=== PATIENT | female | born 1975 | race African-American/Black ===

== ENCOUNTER 2017-05-09 11:56 | Inpatient (IN) | payer MEDICAID ==
[2017-05-09] MEDS ORDERED: LACTATED RINGERS 1,000 ML ONE (13:37)
[2017-05-09] MEDS ORDERED: BRETHINE SUB-Q PRN (13:44)
[2017-05-09] MEDS ORDERED: BRETHINE IVP PRN (13:44)
[2017-05-09] MEDS ORDERED: XYLOCAINE 2% INFILTRATI ONE (13:44)
[2017-05-09] MEDS ORDERED: SUBLIMAZE IV PRN (13:44)
[2017-05-09] MEDS ORDERED: ePHEDrine SULFATE IV PRN (13:44)
--- NOTE | 2017-05-09 13:55 | History and Physical Report ---
History of Present Illness Date of examination: 05/09/17 Date of admission: 05/09/17 11:57 History of present illness: 41 yo first trimester U/s EDc 05/31/17 @ 36.6 weeks presented to [facility] for scheduled appointment and was noted to have BPP 6/8, oligohydramnios 4.89cm and abnormal umbilical dopplers. EFW 6-10oz (47%) on 05/01/17. Patient was first trimester entry into care at 7 weeks gestation. course complicated by advanced maternal age with positive quad screen for trisomy 21 and cell free DNA screen also positive for T-21. Amnio declined. GBS negative. Past History Past Medical History: no pertinent history Past Surgical History: no surgical history Social history: - Obstetrical History Expected Date of Delivery: 05/31/17 Actual Gestation: 36 Week(s) 6 Day(s) : 3 Para: 2 Hx # Term Pregnancies: 2 Number of Living Children: 2 Medications and Allergies Allergies Allergy/AdvReac Type Severity Reaction Status Date / Time No Known Allergies Allergy Verified 09/30/13 13:53 Home Medications Medication Instructions Recorded Confirmed Last Taken Type Vit No.126/Iron/Folic 1 each PO DAILY 09/30/13 09/30/13 09/29/13 History [Classic Tablet] 1 tab HYDROcodone/APAP 5-325 [[place] 2 each PO Q6H PRN #30 tablet 10/01/13 Unknown Rx 5-325 mg TAB] Ibuprofen [Motrin 600 MG tab] 600 mg PO Q6HR #30 tablet 10/01/13 Unknown Rx Active Meds: Active Medications Butorphanol Tartrate (Stadol) 2 mg IV Q2H PRN PRN Reason: Pain , Severe (7-10) Dinoprostone (Cervidil) 10 mg VG ONCE ONE Stop: 05/09/17 14:31 Ephedrine Sulfate (Ephedrine Sulfate) 10 mg IV Q2M PRN PRN Reason: Hypotension Fentanyl (Sublimaze) 100 mcg IV Q2H PRN PRN Reason: Labor Pain Lactated Ringer's (Lactated Ringers) 1,000 mls @ 125 mls/hr IV DIRECT JARVIS Oxytocin/Sodium Chloride (Pitocin/Ns 20 Unit/1000ml Drip) 20 units in 1,000 mls @ 125 mls/hr IV DIRECT JARVIS Oxytocin/Sodium Chloride (Pitocin/Ns 30 Unit/500ml) 30 units in 500 mls @ 1 mls /hr IV TITR JARVIS; 1 MILLIUNITS/MIN PRN Reason: Protocol Oxytocin/Sodium Chloride (Pitocin/Ns 30 Unit/500ml) 30 units in 500 mls @ 4 mls /hr IV TITR JARVIS PRN Reason: Protocol Lidocaine (Xylocaine 2%) 20 ml INFILTRATI ONCE ONE Stop: 05/09/17 13:45 Terbutaline Sulfate (Brethine) 0.25 mg SUB-Q ONCE PRN PRN Reason: Hyperstimulation/Hypertonicity Terbutaline Sulfate (Brethine) 0.25 mg IVP ONCE PRN PRN Reason: Hyperstimulation/Hypertonicity Review of Systems All systems: negative Genitourinary: normal appearance, no vaginal bleeding, no vaginal discharge, no leakage of fluid, no pelvic pain, no genital sores, no contractions - Vital Signs Vital signs: Vital Signs Pulse BP 76 103/62 05/09/17 13:08 05/09/17 13:08 Temp Pulse Resp BP Pulse Ox 86 103/62 96 05/09/17 13:48 05/09/17 13:08 05/09/17 13:48 - Physical Exam Abdomen: Positive: normal appearance, soft Vagina: Positive: normal moisture - Obstetrical FHR: category 1 Uterine Contraction Monitor Mode: External Cervical Dilatation: 1 Cervical Effacement Percentage: 40 station: -3 Uterine Contraction Frequency (min): 0 Uterine Contraction Pattern: Absent Uterine Tone Measurement Phase: Resting Uterine Contraction Intensity: Mild Results All other labs normal. Assessment and Plan A: IUP at 36.6 weeks gestaion AMA Abnormal quad and NIPT for T-21 Oligohydramnios Elevated dopplers BPP 6/10 Unfavorable cervix GBS negative P: Induction per APA recommendations Cervidil
[2017-05-09] MEDS ORDERED: LACTATED RINGERS 1,000 ML IV SCH (14:00)
[2017-05-09] MEDS ORDERED: PITOCin/NS 30 UNIT/500ML 30 UNITS/500 ML BAG IV SCH (14:00)
[2017-05-09] MEDS ORDERED: PITOCin/NS 20 UNIT/1000ML DRIP 20 UNITS/1,000 ML BAG IV SCH (14:00)
[2017-05-09 14:30] LABS: Hematocrit 35.1 % (30.3-42.9); Hemoglobin 11.8 gm/dl (10.1-14.3); Mean Corpuscular HGB Conc 34 % (30-34); Mean Corpuscular Hemoglobin 28 pg (28-32); Mean Corpuscular Volume 82 fl (79-97); Platelet Count 267 K/mm3 (140-440); Red Blood Count 4.26 M/mm3 (3.65-5.03); Red Cell Distribution Width 12.5 % (13.2-15.2); White Blood Count 13.5 K/mm3 (4.5-11.0)
[2017-05-09] MEDS ORDERED: CERVIDIL VG ONE (14:30)
[2017-05-09] MEDS: STADOL IV PRN ×2 (19:27→21:52)
--- NOTE | 2017-05-09 23:33 | Procedure Note ---
OB Delivery Note - Delivery Date of Delivery: 05/09/17 (6-10oz male @ 2302) Surgeon: DANITA DIAS Estimated blood loss: 100cc - Vaginal Delivery presentation: vertex Delivery position: OA Intrapartum events: none Delivery induction: cervidil Delivery monitor: external FHT, external uterine Route of delivery: Delivery placenta: spontaneous Delivery cord: 3 umbilical vessels Episiotomy: none Delivery laceration: 1st degree (not bleeding, not repaired) Anesthesia: none - A at 1 minute: 7 at 5 minutes: 9 Gender: Male (AROM-clear with head on perineum. viable male. NICU present for delivery. Apgars 7/9. Spont. placenta, trailing membranes, gently teased. Sent to pathology. Bleeding scant, Pitocin infusing. FF below U, ML. 1st degree perineal laceration, not bleeding not repaired. Baby placed skin to skin. T-21 apperance.)
[2017-05-09] MEDS ORDERED: TYLENOL PO PRN (23:34)
[2017-05-09] MEDS ORDERED: NORCO 5/325 PO PRN (23:34)
[2017-05-09] MEDS ORDERED: PHENERGAN PO PRN (23:34)
[2017-05-09] MEDS ORDERED: TUCKS PAD TP PRN (23:34)
[2017-05-09] MEDS ORDERED: DULCOLAX PR PRN (23:34)
[2017-05-09] MEDS ORDERED: LANSINOH TP PRN (23:34)
[2017-05-09] MEDS ORDERED: BENADRYL PO PRN (23:34)
[2017-05-09] MEDS ORDERED: SODIUM CHLORIDE FLUSH SYRINGE 10 ML IV PRN (23:45)
[2017-05-10] MEDS ORDERED: PITOCin/NS 30 UNIT/500ML 30 UNITS/500 ML BAG IV SCH (03:00)
[2017-05-10] MEDS: MOTRIN PO SCH ×3 (06:30→19:40)
--- NOTE | 2017-05-10 08:47 | Progress Note ---
Assessment and Plan A: 10 hrs s/p at term with Down's Syndrome P: Routine care Subjective - Subjective Date of service: 05/10/17 Principal diagnosis: s/p at term Interval history: Pt without complaints. Patient reports: appetite normal, voiding normally, ambulating normally : doing well Objective - Vital Signs Latest vital signs: Vital Signs Temp Pulse Resp BP BP Pulse Ox 05/10/17 02:30 97.9 F 82 18 107/71 99 05/10/17 01:14 85 97 05/10/17 01:09 83 97 05/10/17 01:08 80 106/60 05/10/17 01:04 83 98 05/10/17 00:59 82 98 05/10/17 00:54 85 98 05/10/17 00:53 85 105/61 05/10/17 00:49 87 98 05/10/17 00:44 85 98 05/10/17 00:39 84 97 05/10/17 00:38 82 108/67 05/10/17 00:34 85 98 05/10/17 00:29 84 98 05/10/17 00:24 102 H 99 05/10/17 00:23 88 111/72 05/10/17 00:19 93 H 99 05/10/17 00:14 92 H 99 05/10/17 00:09 99 H 98 05/10/17 00:08 93 H 113/71 05/10/17 00:04 89 96 05/09/17 23:59 87 96 05/09/17 23:54 90 97 05/09/17 23:53 91 H 112/60 05/09/17 23:51 90 112/59 05/09/17 23:49 98 H 98 05/09/17 23:44 88 97 05/09/17 23:39 91 H 96 05/09/17 23:37 86 108/57 05/09/17 23:34 89 97 05/09/17 23:29 87 96 05/09/17 23:24 89 97 05/09/17 23:19 101 H 98 05/09/17 23:14 96 H 98 05/09/17 23:09 95 H 97 05/09/17 23:04 114 H 99 05/09/17 22:59 118 H 98 05/09/17 22:54 122 H 97 05/09/17 22:49 119 H 98 17 22:44 124 H 98 17 22:41 113 H 91 17 22:39 107 H 96 17 22:34 115 H 97 17 22:29 114 H 97 05/09/17 22:24 115 H 96 05/09/17 22:19 107 H 97 05/09/17 22:14 114 H 98 05/09/17 22:09 105 H 95 05/09/17 22:04 99 H 96 05/09/17 22:00 106 H 113/65 05/09/17 21:59 101 H 97 05/09/17 21:52 18 05/09/17 21:48 103 H 98 05/09/17 21:43 118 H 98 05/09/17 21:38 110 H 97 05/09/17 21:37 105 H 111/73 05/09/17 21:33 104 H 96 05/09/17 21:28 104 H 97 05/09/17 21:23 108 H 96 05/09/17 21:18 109 H 96 05/09/17 21:13 103 H 96 05/09/17 21:08 106 H 96 05/09/17 21:03 105 H 96 05/09/17 20:58 103 H 96 05/09/17 20:53 96 H 96 05/09/17 20:48 106 H 96 05/09/17 20:43 101 H 96 05/09/17 20:38 96 H 104/54 93 05/09/17 20:37 103 H 94 05/09/17 20:27 104 H 96 17 20:22 109 H 96 17 20:17 106 H 96 17 20:12 114 H 96 17 20:06 109 H 96 05/09/17 20:02 113 H 96 05/09/17 19:57 105 H 97 05/09/17 19:52 104 H 96 17 19:47 100 H 96 17 19:42 100 H 95 17 19:38 94 H 99/59 94 17 19:37 98 H 97 17 19:36 100 H 112/78 05/09/17 19:32 108 H 96 05/09/17 19:27 110 H 98 17 19:22 107 H 97 17 19:17 104 H 97 05/09/17 19:03 103 H 94 05/09/17 19:01 111 H 96 17 18:55 108 H 95 17 18:51 114 H 96 17 18:46 105 H 94 17 18:41 108 H 96 17 18:40 116 H 94 17 18:39 101 H 142/63 05/09/17 18:36 107 H 98 17 18:34 94 H 88 05/09/17 18:31 107 H 95 17 18:26 107 H 97 05/09/17 18:21 98 H 96 05/09/17 18:16 119 H 97 05/09/17 18:10 109 H 98 05/09/17 18:04 111 H 98 05/09/17 17:59 115 H 96 05/09/17 17:54 106 H 96 05/09/17 17:48 106 H 96 05/09/17 17:44 101 H 97 17 17:39 107 H 98 05/09/17 17:37 101 H 119/69 05/09/17 17:34 103 H 96 05/09/17 17:29 101 H 97 05/09/17 17:23 104 H 98 17 17:19 98 H 96 05/09/17 17:17 98.1 F 18 05/09/17 17:14 103 H 98 05/09/17 17:09 105 H 96 17 17:04 101 H 96 17 16:59 98 H 97 17 16:54 88 100 17 16:53 82 85 17 16:45 89 97 17 16:41 89 96 17 16:37 92 H 114/74 17 16:36 94 H 96 17 16:31 90 96 17 16:25 85 96 17 16:20 91 H 95 17 16:15 86 96 17 16:10 89 96 05/09/17 16:05 85 97 05/09/17 16:00 91 H 96 05/09/17 15:55 97 H 95 05/09/17 15:50 88 97 05/09/17 15:45 89 96 05/09/17 15:40 86 98 05/09/17 15:37 84 107/69 05/09/17 15:35 86 98 05/09/17 15:30 81 98 05/09/17 15:25 85 98 05/09/17 15:20 83 98 05/09/17 15:15 89 98 05/09/17 15:10 89 97 05/09/17 15:05 93 H 98 05/09/17 15:00 87 98 05/09/17 14:55 85 97 05/09/17 14:50 81 97 05/09/17 14:45 91 H 98 05/09/17 14:40 85 97 05/09/17 14:38 83 101/59 05/09/17 14:35 93 H 98 05/09/17 14:30 80 99 05/09/17 14:25 87 100 05/09/17 14:18 83 98 05/09/17 14:13 91 H 96 05/09/17 14:12 90 94 05/09/17 14:08 87 96 05/09/17 14:03 86 96 05/09/17 13:58 90 96 05/09/17 13:53 85 96 05/09/17 13:48 86 96 05/09/17 13:43 93 H 97 05/09/17 13:38 92 H 94 05/09/17 13:31 85 98 05/09/17 13:26 99 H 98 05/09/17 13:21 90 98 05/09/17 13:16 94 H 98 05/09/17 13:11 86 98 05/09/17 13:08 76 103/62 Intake and Output 05/09/17 05/10/17 05/10/17 22:59 06:59 14:59 Intake Total 120 Output Total 1000 Balance -880 Intake: Oral 120 Output: Urine 1000 Void 1000 Other: Total, Intake Amount 120 Total, Output Amount 600 # Voids Void 1 Estimated Blood Loss 200 - Exam Breasts: Present: deferred Cardiovascular: Present: Regular rate Lungs: Present: Clear to auscultation Abdomen: Present: soft Uterus: Present: fundal height at umbilicus Extremities: Present: normal - Labs Labs: Abnormal lab results 05/09/17 Range/Units 13:50 WBC 13.5 H (4.5-11.0) K/mm3 RDW 12.5 L (13.2-15.2) %
[2017-05-10 11:47] LABS: Hematocrit 33.5 % (30.3-42.9); Hemoglobin 11.3 gm/dl (10.1-14.3)
[2017-05-10] MEDS ORDERED: M-M-R II VACCINE SUB-Q ONE (23:34)
[2017-05-11] MEDS: MOTRIN PO SCH ×5 (00:12→17:59)
[2017-05-11] MEDS ORDERED: BOOSTRIX IM ONE (06:00)
[2017-05-11] MEDS: PRENATAL VITAMIN PO SCH (10:46)
--- NOTE | 2017-05-11 17:48 | Progress Note ---
Assessment and Plan A: PPD#2 s/p at term (48 hrs at 11 pm) with Down's Syndrome P: Routine care Anticipate discharge tomorrow. Subjective - Subjective Date of service: 05/11/17 Principal diagnosis: s/p at term Interval history: Pt without complaints. Patient reports: appetite normal, voiding normally, pain well controlled, ambulating normally, no nauseated [place]: doing well (Down's Syndrome ) Objective - Vital Signs Latest vital signs: Vital Signs Temp Pulse Resp BP BP Pulse Ox 05/11/17 12:32 97.5 F L 70 18 104/53 98 05/11/17 09:30 97.4 F L 69 18 86/40 05/11/17 09:06 97.4 F L 69 18 86/40 97 05/10/17 23:35 98.0 F 18 113/64 Intake and Output 05/11/17 05/11/17 05/11/17 06:59 14:59 22:59 Intake Total 240 120 Balance 240 120 Intake: Oral 240 120 Other: Total, Intake Amount 120 120 # Voids Void 1 1 - Exam Breasts: Present: deferred Cardiovascular: Present: Regular rate Lungs: Present: Clear to auscultation Abdomen: Present: soft Uterus: Present: fundal height below umbilicus Extremities: Present: normal
[2017-05-12] MEDS: PRENATAL VITAMIN PO SCH (10:01)
--- NOTE | 2017-05-12 10:54 | Discharge Summary ---
Providers - Providers Date of Admission: 05/09/17 11:57 Date of discharge: 05/12/17 Attending physician: BIBIANA FERNANDEZ MD Primary care physician: BIBIANA FERNANDEZ MD Hospitalization Reason for admission: induction of labor Delivery: Procedure details: Please see delivery note. Episiotomy: none Laceration: 1st degree Other procedures: none complications: none Discharge diagnosis: IUP at term delivered baby: male Hospital course: Pt underwent which she tolerated well. She met discharge criteria on PPD#3. She will follow up in 4 weeks with Cheryl Null. Condition at discharge: Stable Disposition: DC-01 TO HOME OR SELFCARE - Discharge Diagnoses (1) Advanced maternal age (AMA), 40 years or greater Status: Acute (2) delivery Status: Acute (3) Term of male Status: Acute Plan - Discharge Medications Prescriptions: HYDROcodone/ACETAMINOPHEN [[place] 5-325 Tablet] 1 each PO Q6H PRN #20 tablet PRN Reason: Pain Ibuprofen [Motrin] 800 mg PO Q8HR PRN #40 tablet PRN Reason: Pain - Provider Discharge Summary Activity: routine, no sex for 6 weeks, no heavy lifting 4 weeks, no strenuous exercise Diet: routine Instructions: routine Additional instructions: [] Smoking cessation referral if applicable(refer to patient education folder for contact #) [] Refer to [facility]'s [facility] Booklet Call your doctor immediately for: * Fever > 100.5 * Heavy vaginal bleeding ( >1 pad per hour) * Severe persistent headache * Shortness of breath * Reddened, hot, painful area to leg or breast * Drainage or odor from incision. * Keep incision clean and dry at all times and follow doctor's instructions regarding bathing/showering - Follow up plan Follow up: CHERYL NULL CNM [Advanced Practice Nurse] - 06/10/17 (please schedule popstpartum exam ) Forms: [facility] Discharge Summary
--- NOTE | 2017-05-12 10:54 | Progress Note ---
Assessment and Plan A: PPD#3 s/p at term (48 hrs at 11 pm) with Down's Syndrome AMA P: Routine care Discharge today Subjective - Subjective Date of service: 05/12/17 Principal diagnosis: s/p at term Interval history: Pt without complaints. Baby is under bili lights and will not be discharged today. Patient reports: appetite normal, voiding normally, pain well controlled, ambulating normally, no nauseated : doing well (under bili lights ) Objective - Vital Signs Latest vital signs: Vital Signs Temp Pulse Resp BP BP Pulse Ox 05/12/17 08:40 97.2 F L 74 105/63 05/12/17 00:00 97.8 F 68 20 108/66 05/11/17 17:40 97.6 F 66 18 96/42 05/11/17 12:32 97.5 F L 70 18 104/53 98 Intake and Output 05/11/17 05/12/17 05/12/17 22:59 06:59 14:59 Intake Total 120 120 240 Balance 120 120 240 Intake: Oral 120 120 240 Other: Total, Intake Amount 120 120 240 # Voids Void 1 1 1 - Exam Breasts: Present: deferred Cardiovascular: Present: Regular rate Lungs: Present: Clear to auscultation Abdomen: Present: soft Uterus: Present: fundal height at umbilicus Extremities: Present: normal
[2017-05-12] MEDS: MOTRIN PO SCH ×2 (11:30)
[2017-05-12] MEDS ORDERED: Fluarix Quad 2017-2018(36 MOS+ IM ONE (12:00)
[2017-05-12 13:50] VITALS: BP 122/71
== END 2017-05-12 13:20 | disposition home or self-care (01) | DRG 775 ==
LOC: TRG 11:56 → LD 11:57 → OB 05-10 02:56
PROVIDERS: ADMIT Obstetrics & Gynecology; ATTEND Obstetrics & Gynecology
PROC: 10E0XZZ Delivery of Products of Conception, External Approach (ICD-10-PCS; principal; 2017-05-09)
PROC: 10907ZC Drainage of Amniotic Fluid, Therapeutic from Products of Conception, Via Natural or Artificial Opening (ICD-10-PCS; 2017-05-09)
PROC: 3E0P7VZ Introduction of Hormone into Female Reproductive, Via Natural or Artificial Opening (ICD-10-PCS; 2017-05-09)
PROC: 3E0234Z Introduction of Serum, Toxoid and Vaccine into Muscle, Percutaneous Approach (ICD-10-PCS; 2017-05-11)
DX: O60.14X0 Preterm labor third trimester with preterm delivery third trimester, not applicable or unspecified (principal); Z3A.36 36 weeks gestation of pregnancy; Z37.0 Single live birth; Z23 Encounter for immunization; O41.03X0 Oligohydramnios, third trimester, not applicable or unspecified; O70.0 First degree perineal laceration during delivery
CPT/HCPCS: 36415; 85014; 85018; 85027; 86592; 86850; 86900; 86901; 88305; 88307; 90471; 90686; 90715; 99211; G0008; G0463; J0595; J2590; J7120

== ENCOUNTER 2022-01-29 08:21 | Inpatient (IN) | payer MEDICAID ==
[2022-01-29] MEDS ORDERED: DINOPROSTONE 10 MG VAG SUPP VG NR (10:19)
[2022-01-29] MEDS ORDERED: LACTATED RINGERS 1,000 ML IV SCH (11:00)
[2022-01-29 11:27] LABS: Hematocrit 33.6 % (30.3-42.9); Hemoglobin 10.7 gm/dl (10.1-14.3); Mean Corpuscular HGB Conc 32 % (30-34); Mean Corpuscular Volume 81 fl (79-97); Platelet Count 274 K/mm3 (140-440); Red Blood Count 4.17 M/mm3 (3.65-5.03); Red Cell Distribution Width 13.8 % (13.2-15.2)
[2022-01-29] MEDS ORDERED: BUTORPHANOL 2 MG/1 ML INJ IV PRN (15:00)
[2022-01-29] MEDS ORDERED: OXYTOCIN DRIP 30,000 MILLIUNITS/500 ML BAG IV ONE (15:26)
[2022-01-29] MEDS ORDERED: MINERAL OIL 30 ML ORAL LIQD ONE (16:46)
[2022-01-29] MEDS ORDERED: LIDOCAINE (2%) 20 MG/1 ML VIAL 20 ML MDV INFILTRATI ONE (16:48)
--- NOTE | 2022-01-29 17:15 | Procedure Note ---
OB Delivery Note - Delivery Date of Delivery: 01/29/22 (1647) Surgeon: PAOLA RWOLAND Estimated blood loss: 200cc - Vaginal Delivery presentation: vertex Delivery position: OA Intrapartum events: meconium Delivery induction: cervidil Delivery augmentation: rupture of membranes (AROM of a moderate amount of light meconium stained at 1642) Delivery monitor: external FHT, external uterine Route of delivery: Delivery placenta: spontaneous Delivery cord: 3 umbilical vessels Episiotomy: none Delivery laceration: 1st degree Delivery repair: vicryl Anesthesia: local Delivery comments: of a live 7'6 female infant over a 1st degree perineal laceration under IV Pain Control with Apgars of 8 and 9 at 1647 on 01/29/2022. Cord double clamped and cut by JULES Rowland, due to light meconium stained fluids; not stimulated and handed directly to awaiting NICU/RESP team. Spontaneous delivery of placenta complete and intact with Bautista side presenting at 1649. Fundus is firm and midline located 4 below the U. Lochia is scant. Perineal laceration repaired with 2.0 Vicryl on a SH under local 2% Lidocaine. Cord blood collected. Placenta discarded. - Infant A at 1 minute: 8 at 5 minutes: 9 Gender: Female (7'6)
[2022-01-29] MEDS ORDERED: LIDOCAINE (2%) 20 MG/1 ML VIAL 20 ML MDV INFILTRATI SCH (17:30)
--- NOTE | 2022-01-29 17:32 | History and Physical Report ---
History of Present Illness Date of examination: 01/29/22 Date of admission: January 29, 2022 Chief complaint: Induction of labor History of present illness: 46-year-old -0-1-3 at 39+3 weeks who presents for induction of labor. Her course is complicated by advanced maternal age and a history of genital herpes for which the patient was on suppression therapy. She denies any recent prodrome. The patient is GBS negative. Past History Past Medical History: no pertinent history Past Surgical History: other (Nasal surgery) Social history: single - Obstetrical History Expected Date of Delivery: 02/02/22 Actual Gestation: 39 Week(s) 3 Day(s) : 5 Para: 3 Hx # Term Pregnancies: 3 Number of Pregnancies: 0 Spontaneous Abortions: 1 Induced : 0 Number of Living Children: 3 Medications and Allergies Allergies Allergy/AdvReac Type Severity Reaction Status Date / Time No Known Allergies Allergy Verified 01/29/22 09:40 Home Medications Medication Instructions Recorded Confirmed Last Taken Type HYDROcodone/ACETAMINOPHEN [[place] 1 each PO Q6H PRN #20 tablet 05/11/17 Unknown Rx 5-325 Tablet] Ibuprofen [Motrin] 800 mg PO Q8HR PRN #40 tablet 05/11/17 Unknown Rx Active Meds: Active Medications Butorphanol Tartrate (Butorphanol 2 Mg/1 Ml Inj) 2 mg IV Q2H PRN PRN Reason: Labor Pain Last Admin: 01/29/22 15:15 Dose: 2 mg Lactated Ringer's (Lactated Ringers) 1,000 mls @ 125 mls/hr IV DIRECT JARVIS Last Admin: 01/29/22 11:35 Dose: 125 mls/hr Review of Systems All systems: negative - Vital Signs Vital signs: Vital Signs Temp Pulse Resp BP Pulse Ox 98.3 F 101 H 20 114/73 98 01/29/22 09:16 01/29/22 09:16 01/29/22 09:16 01/29/22 09:16 01/29/22 09:16 Temp Pulse Resp BP Pulse Ox 97.4 F L 81 20 133/72 99 01/29/22 13:00 01/29/22 17:25 01/29/22 09:16 01/29/22 17:14 01/29/22 17:25 - Physical Exam Breasts: Positive: deferred Cardiovascular: Regular rate Lungs: Positive: Clear to auscultation Results Result Diagrams: 01/29/22 10:45 Abnormal lab results 01/29/22 Range/Units 10:45 WBC 12.5 H (4.5-11.0) K/mm3 MCH 26 L (28-32) pg All other labs normal. Assessment and Plan - Patient Problems (1) Advanced maternal age (AMA), 40 years or greater Current Visit: No Status: Acute Plan to address problem: Admit to labor and delivery
[2022-01-29] MEDS: IBUPROFEN 800 MG TAB PO SCH (17:42)
[2022-01-29] MEDS ORDERED: diphenhydrAMINE 25 MG CAP PO PRN (18:00)
[2022-01-29] MEDS ORDERED: METHYLERGONOVINE MALEATE 0.2 MG/ML VIAL IM PRN (18:00)
[2022-01-29] MEDS ORDERED: miSOPROStol 200 MCG TAB PR PRN (18:00)
[2022-01-29] MEDS ORDERED: WITCH HAZEL/ GLYCERIN PAD TP PRN (18:00)
[2022-01-29] MEDS ORDERED: LANOLIN/ZINC/DIMETHICONE (LANSINOH) 7 GM TP PRN (18:00)
[2022-01-29] MEDS ORDERED: LOPERAMIDE 2 MG CAP PO PRN (18:00)
[2022-01-29] MEDS ORDERED: ePHEDrine SULFATE 50 MG/1 ML INJ IV PRN (18:00)
[2022-01-29] MEDS ORDERED: OXYTOCIN DRIP 30 UNITS/500 ML BAG IV SCH (18:00)
[2022-01-29] MEDS ORDERED: CARBOPROST TROMETHAMINE 250 MCG/1 ML INJ IM PRN (18:00)
[2022-01-29] MEDS ORDERED: HYDROcodone/ACETAMINOPHEN 5-325 MG TAB PO PRN (18:00)
[2022-01-29] MEDS ORDERED: NALOXONE 0.4 MG/1 ML INJ IV PRN (18:00)
[2022-01-29] MEDS ORDERED: PROMETHAZINE 25 MG TAB PO PRN (18:00)
[2022-01-29] MEDS ORDERED: MINERAL OIL 30 ML ORAL LIQD PO PRN (18:00)
[2022-01-29] MEDS ORDERED: OXYTOCIN 10 UNIT/1 ML INJ IM PRN (18:00)
[2022-01-29] MEDS ORDERED: TERBUTALINE 1 MG/1 ML INJ SUB-Q PRN (18:00)
[2022-01-29 21:17] LABS: Hematocrit 32.2 % (30.3-42.9); Hemoglobin 10.2 gm/dl (10.1-14.3)
[2022-01-29] MEDS ORDERED: MAGNESIUM HYDROXIDE (MOM) ORAL LIQD UDC PO PRN (22:00)
[2022-01-30] MEDS: IBUPROFEN 800 MG TAB PO SCH ×2 (07:52→13:38)
[2022-01-30] MEDS ORDERED: guaiFENesin DM 200/20 MG ORAL LIQD 10 ML PO PRN (09:00)
[2022-01-30 09:19] LABS: Hematocrit 29.3 % (30.3-42.9); Hemoglobin 9.6 gm/dl (10.1-14.3)
[2022-01-30] MEDS ORDERED: PRENATAL VIT27-FE FUMARATE-FOLIC ACID VIT TAB PO SCH (10:00)
--- NOTE | 2022-01-30 12:38 | Progress Note ---
Assessment and Plan A:PPD#1 s/p at term P:Continue with routine care with discharge anticipated this evening. Subjective - Subjective Date of service: 01/30/22 Principal diagnosis: PPD#1 s/p at term Interval history: PPD#1 s/p at term. Patient is feeling well and minimal complaints. Requesting cough medication. Pain is well controlled, lochia is decreasing and she reports no issues with ambulation. Patient reports: appetite normal, voiding normally, pain well controlled, ambulating normally : doing well Objective - Vital Signs Latest vital signs: Vital Signs Temp Pulse Resp BP BP Pulse Ox Pulse Ox 01/30/22 12:00 98 F 91 H 20 104/54 98 01/30/22 08:00 98 01/30/22 07:47 97.5 F L 72 18 96/49 97 01/30/22 04:45 98.3 F 70 16 104/58 98 01/30/22 00:31 98.3 F 65 18 108/62 98 01/29/22 20:05 97.6 F 76 20 119/69 98 01/29/22 18:26 81 49 L 01/29/22 18:20 71 98 01/29/22 18:15 76 98 01/29/22 18:14 72 106/59 01/29/22 18:10 75 98 01/29/22 18:05 75 98 01/29/22 18:00 75 99 01/29/22 17:59 71 111/56 01/29/22 17:55 80 99 01/29/22 17:50 87 100 01/29/22 17:45 77 113/55 99 01/29/22 17:40 78 99 01/29/22 17:35 77 98 01/29/22 17:30 82 100 01/29/22 17:29 82 132/73 01/29/22 17:25 81 99 01/29/22 17:20 79 99 01/29/22 17:15 82 99 01/29/22 17:14 87 133/72 01/29/22 17:10 92 H 99 01/29/22 17:05 91 H 100 01/29/22 17:00 83 99 01/29/22 16:59 82 130/71 01/29/22 15:43 87 99 01/29/22 15:38 96 H 98 01/29/22 15:33 83 99 01/29/22 15:28 89 99 01/29/22 15:23 81 96 01/29/22 15:19 91 H 93 01/29/22 15:18 84 99 01/29/22 15:13 112 H 99 01/29/22 15:02 109 H 100 01/29/22 14:57 113 H 97 01/29/22 14:52 98 H 99 01/29/22 14:47 104 H 98 01/29/22 14:42 103 H 100 01/29/22 14:37 109 H 99 01/29/22 14:32 107 H 98 01/29/22 14:27 103 H 99 01/29/22 14:22 100 H 98 01/29/22 14:17 91 H 99 01/29/22 14:12 101 H 99 01/29/22 14:07 96 H 99 01/29/22 14:02 103 H 98 01/29/22 13:55 86 01/29/22 13:54 101 H 99 01/29/22 13:49 89 98 01/29/22 13:44 94 H 99 01/29/22 13:39 109 H 99 01/29/22 13:34 93 H 99 01/29/22 13:29 98 H 99 01/29/22 13:24 85 99 01/29/22 13:19 80 99 01/29/22 13:14 101 H 98 01/29/22 13:09 98 H 98 01/29/22 13:06 90 132/63 01/29/22 13:05 98 H 94 01/29/22 13:04 106 H 95 01/29/22 13:00 97.4 F L 01/29/22 12:59 78 84 01/29/22 12:55 90 85 01/29/22 12:50 89 98 01/29/22 12:45 90 98 01/29/22 12:40 86 98 Intake and Output 01/29/22 01/30/22 01/30/22 23:59 07:59 15:59 Intake Total 120 240 Output Total 450 Balance -330 240 Intake: Oral 120 Intake, Free Water 240 Output: Urine 450 Void 450 Other: Total, Intake Amount 120 Total, Output Amount 200 # Voids Void 2 Estimated Blood Loss 200 - Labs Labs: Abnormal lab results 01/30/22 Range/Units 08:42 Hgb 9.6 L (10.1-14.3) gm/dl Hct 29.3 L (30.3-42.9) %
--- NOTE | 2022-01-30 12:39 | Discharge Summary ---
Providers - Providers Date of Admission: 01/29/22 08:22 Date of discharge: 01/30/22 Attending physician: CHRISS FERNÁNDEZ Primary care physician: CHRISS FERNÁNDEZ Hospitalization Reason for admission: induction of labor, IUP at term Delivery: Episiotomy: none Laceration: 1st degree Other procedures: none complications: none Discharge diagnosis: IUP at term delivered baby: female Hospital course: 46-year-old -0-1-3 at 39+3 weeks who presented for induction of labor. She went on to have a of a viable female . Her course was unremarkable. Condition at discharge: Good Disposition: 01 HOME / SELF CARE / HOMELESS Plan - Discharge Medications Prescriptions: Ferrous Sulfate [Ferrous Sulfate 324 MG] 325 mg PO QDAY 30 Days #30 mg Ibuprofen [Motrin] 800 mg PO Q8H PRN #30 tablet PRN Reason: Pain - Provider Discharge Summary Activity: routine, no sex for 6 weeks, no heavy lifting 4 weeks, no strenuous exercise Diet: routine Instructions: routine Additional instructions: [] Smoking cessation referral if applicable(refer to patient education folder for contact #) [] Refer to [facility]'s [facility] Booklet Call your doctor immediately for: * Fever > 100.5 * Heavy vaginal bleeding ( >1 pad per hour) * Severe persistent headache * Shortness of breath * Reddened, hot, painful area to leg or breast * Drainage or odor from incision. * Keep incision clean and dry at all times and follow doctor's instructions regarding bathing/showering - Follow up plan Follow up: CHRISS FERNÁNDEZ MD [Primary Care Provider] - 02/26/22
[2022-01-30] MEDS ORDERED: guaiFENesin 100 MG/5 ML ORAL LIQD PO PRN (13:00)
[2022-01-30 17:09] VITALS: BP 110/54
== END 2022-01-30 19:12 | disposition home or self-care (01) | DRG 774 ==
LOC: TRG 08:21 → LD 08:22 → TRG 17:25 → OB 19:46
PROVIDERS: ADMIT Obstetrics & Gynecology; ATTEND Obstetrics & Gynecology
PROC: 10E0XZZ Delivery of Products of Conception, External Approach (ICD-10-PCS; principal; 2022-01-29)
PROC: 3E0P7VZ Introduction of Hormone into Female Reproductive, Via Natural or Artificial Opening (ICD-10-PCS; 2022-01-29)
PROC: 10907ZC Drainage of Amniotic Fluid, Therapeutic from Products of Conception, Via Natural or Artificial Opening (ICD-10-PCS; 2022-01-29)
PROC: 0HQ9XZZ Repair Perineum Skin, External Approach (ICD-10-PCS; 2022-01-29)
DX: O77.0 Labor and delivery complicated by meconium in amniotic fluid (principal); O98.32 Other infections with a predominantly sexual mode of transmission complicating childbirth; O70.0 First degree perineal laceration during delivery; Z3A.39 39 weeks gestation of pregnancy; Z37.0 Single live birth; Z20.822 Contact with and (suspected) exposure to COVID-19; A60.00 Herpesviral infection of urogenital system, unspecified
CPT/HCPCS: 36415; 59200; 85014; 85018; 85027; 86592; 86850; 86900; 86901; 96360; 96361; 96365; 96374; G0378; J3490; J0595; J7120; U0003